=== PATIENT | male | born 1940 | race Caucasian/White ===

== ENCOUNTER 2017-03-29 10:04 | Day surgery (SDC) | payer MEDICARE, BC ==
[~2017-03-29] VITALS: Ht 177.8 cm; Wt 110.5 kg
[~2017-03-29 10:04] MED LIST: ASPIRIN 81M81 MG/TA2 PO; BYETTA; CALAN SR240 MG PO; CARDIZEM CD360 MG PO; CELEXA 20MG20 MG/TAB PO; CLOPIDOGREL; COREG12.5 MG PO; COZAAR100 MG PO; FLEXERIL10 MG PO; LASIX 20MG TABL20 MG PO; LIPITOR 80MG80 MG PO; LORTAB 5/500 501 TAB PO; LOTENSIN10 MG PO; NIZATIDINE150 MG PO; NOVOLIN 70/30 IN3 ML SC; PLAVIX 75MG TAB75 MG PO; VYTORIN
[2017-03-29] MEDS ORDERED: HYGROTON 2525 MG/TAB (10:53)
[2017-03-29] MEDS ORDERED: PROBIOTIC-MAJOR PO (10:54)
[2017-03-29] MEDS ORDERED: ALLEGRA ALLERGY60 MG PO (10:54)
[2017-03-29 11:37] VITALS: BP 94/41; PULSE 46; TEMP 97.9
[2017-03-29 13:30] VITALS: BP 149/56; PULSE 56; TEMP 97.4
[2017-03-29 13:45] VITALS: BP 146/51; PULSE 59
== END 2017-03-29 14:09 | disposition home or self-care (01) ==
LOC: SDCO 10:04
DX: E11.621 Type 2 diabetes mellitus with foot ulcer (principal); L97.524 Non-pressure chronic ulcer of other part of left foot with necrosis of bone; F17.210 Nicotine dependence, cigarettes, uncomplicated; E78.5 Hyperlipidemia, unspecified; E11.40 Type 2 diabetes mellitus with diabetic neuropathy, unspecified; I25.10 Atherosclerotic heart disease of native coronary artery without angina pectoris; K21.9 Gastro-esophageal reflux disease without esophagitis; F32.9 Major depressive disorder, single episode, unspecified; I11.0 Hypertensive heart disease with heart failure; J44.9 Chronic obstructive pulmonary disease, unspecified; G47.33 Obstructive sleep apnea (adult) (pediatric); Z79.84 Long term (current) use of oral hypoglycemic drugs; Z79.01 Long term (current) use of anticoagulants; Z89.421 Acquired absence of other right toe(s); Z95.5 Presence of coronary angioplasty implant and graft; Z89.422 Acquired absence of other left toe(s)
CPT/HCPCS: J2704; J3010; J3370; J7030; J7050

== ENCOUNTER → 2017-11-13 | Outpatient (CLI) | payer MEDICARE, BC ==
[~2017-11-13] MED LIST changes: +ALLEGRA ALLERGY60 MG PO; +HYGROTON 2525 MG/TAB; +NORCO 325 MG-51 TAB PO; +PROBIOTIC-MAJOR PO
== END ==
LOC: COL.RAD 16:19
DX: G31.89 Other specified degenerative diseases of nervous system (principal)

== ENCOUNTER → 2018-02-22 | Emergency (ER) | payer MEDICARE, BC ==
[~2018-02-22] MED LIST changes: +COREG 3.123.125 MG/T PO; +HUMALOG 75/2100 U/ML SQ; +MULTI-VITAMIN W1 TA1 PO; -NOVOLIN 70/30 IN3 ML SC; +NS INT FLUSH 1010 ML IV; +ROCEPHIN 2GM VIAL21 IV; +VANCOCIN HCL1 GM IV
== END ==
LOC: COL.ER 18:53
DX: Z72.89 Other problems related to lifestyle (principal); Z79.82 Long term (current) use of aspirin; Z79.02 Long term (current) use of antithrombotics/antiplatelets; Z79.4 Long term (current) use of insulin

== ENCOUNTER 2018-02-23 09:36 | Emergency (ER) | payer MEDICARE, BC ==
[~2018-02-23] VITALS: Ht 177.8 cm; Wt 107.7 kg
[2018-02-23 09:41] VITALS: BP 146/65; PULSE 62; TEMP 98.1
== END 2018-02-23 10:28 | disposition home or self-care (01) ==
LOC: COL.ER 09:36
DX: M86.9 Osteomyelitis, unspecified (principal); S91.302A Unspecified open wound, left foot, initial encounter; Z79.02 Long term (current) use of antithrombotics/antiplatelets; Z79.82 Long term (current) use of aspirin

== ENCOUNTER 2018-03-02 07:09 | Outpatient (RCR) | payer MEDICARE, BC ==
[2018-02-22 08:00] VITALS: BP 140/64; PULSE 70; TEMP 97.3
[2018-02-23 07:27] VITALS: BP 136/54; PULSE 63; TEMP 98.4
[2018-02-24 07:21] LABS: MEAN CELL VOLUME 86 fl (80.0-100.0); MEAN CORPUSCULAR HEMOGLOBIN 28 pg (27.0-31.0); MEAN CORPUSCULAR HGB CONC 33 g/dl (33.0-37.0); MEAN PLATELET VOLUME 10.5 fl (7.4-10.4); PLATELET COUNT 245 K/mm3 (130-400); RED BLOOD COUNT 3.92 M/mm3 (4.20-5.60); REDCELL DISTRIBUTION WIDTH-CV 15.1 % (11.5-14.5)
[2018-02-24 07:24] LABS: HEMATOCRIT 33.8 % (42.0-52.0)
[2018-02-24 07:37] LABS: ALBUMIN 2.9 gm/dL (3.5-5.0); BILIRUBIN,TOTAL 0.5 mg/dL (0.0-1.0); CALCIUM 8.4 mg/dL (8.4-10.2); CREATININE, serum 0.79 mg/dL (0.66-1.25); POTASSIUM 3.3 mmol/L (3.4-5.0); TOTAL PROTEIN 6.4 gm/dL (6.4-8.2)
[2018-02-24 07:42] LABS: VANCOMYCIN TROUGH 17.58 ug/mL (7.00-20.00)
[2018-02-24 07:44] LABS: ERYTHROCYTE SEDIMENTATION RATE 118 mm/hr (0-30)
[2018-02-24 09:41] VITALS: BP 140/109; PULSE 71; TEMP 98.6
[2018-02-24 18:03] VITALS: BP 148/63; PULSE 74; TEMP 98.4
[2018-02-25 06:51] VITALS: BP 160/73; PULSE 76; TEMP 97.8
[2018-02-25 18:31] VITALS: BP 168/73; PULSE 82; TEMP 98
[2018-02-26 06:52] VITALS: BP 172/69; PULSE 69; TEMP 98.1
[2018-02-26 17:36] VITALS: BP 189/71; PULSE 79; TEMP 98.8
[2018-02-27 07:11] VITALS: BP 177/79; PULSE 70; TEMP 98.6
[2018-02-27 17:51] VITALS: BP 151/56; PULSE 61; TEMP 99.8
[2018-02-28 06:32] VITALS: BP 125/53; PULSE 52; TEMP 98.1
[2018-03-01 08:28] VITALS: BP 166/66; PULSE 76; TEMP 98.6
[~2018-03-02] VITALS: Ht 182.9 cm; Wt 111.0 kg
[2018-03-03 06:34] VITALS: BP 165/59; PULSE 76; TEMP 97.6
[2018-03-03 07:17] LABS: BILIRUBIN,TOTAL 0.4 mg/dL (0.0-1.0); CALCIUM 8.5 mg/dL (8.4-10.2); CREATININE, serum 0.93 mg/dL (0.66-1.25); TOTAL PROTEIN 7.1 gm/dL (6.4-8.2)
[2018-03-03 07:30] LABS: HEMOGLOBIN 11.3 g/dl (13.5-18.0); MEAN CELL VOLUME 86 fl (80.0-100.0); MEAN CORPUSCULAR HEMOGLOBIN 28 pg (27.0-31.0); MEAN CORPUSCULAR HGB CONC 32 g/dl (33.0-37.0); MEAN PLATELET VOLUME 9.2 fl (7.4-10.4); PLATELET COUNT 349 K/mm3 (130-400); REDCELL DISTRIBUTION WIDTH-CV 15.6 % (11.5-14.5)
[2018-03-03 07:31] LABS: HEMATOCRIT 35.4 % (42.0-52.0)
[2018-03-03 07:39] LABS: C-REACTIVE PROTEIN 6.8 mg/dL (0.0-0.9)
[2018-03-03 07:53] LABS: ERYTHROCYTE SEDIMENTATION RATE > 140 mm/hr (0-30)
[2018-03-04 07:17] VITALS: BP 169/64; PULSE 66; TEMP 98.2
[2018-03-06 07:06] VITALS: BP 164/62; PULSE 72; TEMP 98.7
[2018-03-07 08:05] VITALS: BP 171/75; PULSE 75; TEMP 98.7
[2018-03-08 07:07] VITALS: BP 180/54; PULSE 74; TEMP 98.1
[2018-03-09 07:07] VITALS: BP 185/71; PULSE 73; TEMP 97.6
[2018-03-10 06:55] VITALS: BP 198/76; PULSE 70; TEMP 98.3
[2018-03-10 07:09] LABS: HEMOGLOBIN 11.1 g/dl (13.5-18.0); MEAN CELL VOLUME 86 fl (80.0-100.0); MEAN CORPUSCULAR HEMOGLOBIN 28 pg (27.0-31.0); MEAN CORPUSCULAR HGB CONC 32 g/dl (33.0-37.0); PLATELET COUNT 317 K/mm3 (130-400); RED BLOOD COUNT 4.01 M/mm3 (4.20-5.60); REDCELL DISTRIBUTION WIDTH-CV 15.9 % (11.5-14.5)
[2018-03-10 07:10] LABS: HEMATOCRIT 34.4 % (42.0-52.0)
[2018-03-10 07:22] LABS: ALBUMIN 3.1 gm/dL (3.5-5.0); BILIRUBIN,TOTAL 0.4 mg/dL (0.0-1.0); C-REACTIVE PROTEIN 2.9 mg/dL (0.0-0.9); CALCIUM 8.7 mg/dL (8.4-10.2); CREATININE, serum 0.92 mg/dL (0.66-1.25); TOTAL PROTEIN 7.4 gm/dL (6.4-8.2)
[2018-03-10 07:33] LABS: ERYTHROCYTE SEDIMENTATION RATE 88 mm/hr (0-30)
[2018-03-11 07:29] VITALS: BP 144/65; PULSE 67; TEMP 98.2
[2018-03-12 07:21] VITALS: BP 133/58; BP 99/54; PULSE 102; PULSE 47; TEMP 98.2; TEMP 98.7
[2018-03-13 06:46] VITALS: BP 164/62; PULSE 69; TEMP 98.1
[2018-03-14 07:00] VITALS: BP 170/75; PULSE 71; TEMP 98.2
[2018-03-15 07:27] VITALS: BP 168/71; PULSE 70; TEMP 98.7
[2018-03-16 07:23] VITALS: BP 193/74; PULSE 70; TEMP 98.3
[2018-03-17 07:07] LABS: HEMOGLOBIN 11.4 g/dl (13.5-18.0); MEAN CELL VOLUME 85 fl (80.0-100.0); MEAN CORPUSCULAR HEMOGLOBIN 27 pg (27.0-31.0); MEAN CORPUSCULAR HGB CONC 32 g/dl (33.0-37.0); MEAN PLATELET VOLUME 9.2 fl (7.4-10.4); PLATELET COUNT 246 K/mm3 (130-400); RED BLOOD COUNT 4.18 M/mm3 (4.20-5.60); REDCELL DISTRIBUTION WIDTH-CV 16.6 % (11.5-14.5)
[2018-03-17 07:12] VITALS: BP 145/82; PULSE 69; TEMP 98.2
[2018-03-17 07:27] LABS: ALBUMIN 3.2 gm/dL (3.5-5.0); BILIRUBIN,TOTAL 0.3 mg/dL (0.0-1.0); CALCIUM 8.6 mg/dL (8.4-10.2); CREATININE, serum 0.89 mg/dL (0.66-1.25); POTASSIUM 4.2 mmol/L (3.4-5.0); TOTAL PROTEIN 7.4 gm/dL (6.4-8.2)
[2018-03-17 07:29] LABS: HEMATOCRIT 35.6 % (42.0-52.0)
[2018-03-17 08:00] LABS: ERYTHROCYTE SEDIMENTATION RATE 71 mm/hr (0-30)
[2018-03-18 07:27] VITALS: BP 205/76; PULSE 69; TEMP 98.4
[2018-03-19 06:50] VITALS: BP 161/67; PULSE 63; TEMP 97.9
[2018-03-20] MEDS ORDERED: HUMALOG MIX 75/10 ML SQ ×2 (10:14)
[2018-03-21] MEDS ORDERED: NORCO 325 MG-7.1 TAB PO (06:21)
[2018-04-01] MEDS ORDERED: COREG 25MG25 MG/TAB PO (07:32)
[2018-04-01] MEDS ORDERED: NORCO 325 MG-51 TAB PO (07:33)
== END 2018-03-20 06:14 | disposition home or self-care (01) ==
LOC: EUO 03-03 06:30
PROVIDERS: Family Medicine; Internal Medicine; Internal Medicine Infectious Disease; Orthopaedic Surgery
DX: E11.628 Type 2 diabetes mellitus with other skin complications (principal); L08.9 Local infection of the skin and subcutaneous tissue, unspecified
CPT/HCPCS: J0696; J1644; J3370; J7040

== ENCOUNTER → 2018-03-17 | Outpatient (CLI) | payer MEDICARE, BC | LOC: ZCOL.LAB 15:45 | DX: Z01.812 Encounter for preprocedural laboratory examination (principal); Z86.14 Personal history of Methicillin resistant Staphylococcus aureus infection ==

== ENCOUNTER 2018-03-23 01:33 | Emergency (ER) | payer MEDICARE, BC ==
[~2018-03-23] VITALS: Ht 180.3 cm; Wt 109.1 kg
[~2018-03-23 01:33] MED LIST changes: +HUMALOG MIX 75/10 ML SQ; +NORCO 325 MG-7.1 TAB PO
[2018-03-23 01:35] VITALS: TEMP 96.7
[2018-03-23 02:08] LABS: BASO % 0.3 % (0.0-2.0); EOS % 0.2 % (0-4.0); GRAN # 13.6 (1.4-6.5); GRAN % 86.3 % (42.2-75.2); HEMOGLOBIN 10.5 g/dl (13.5-18.0); LYMPH # 1.5 (1.2-3.4); LYMPH % 9.7 % (20.0-51.0); MEAN CELL VOLUME 86 fl (80.0-100.0); MEAN CORPUSCULAR HEMOGLOBIN 28 pg (27.0-31.0); MEAN CORPUSCULAR HGB CONC 32 g/dl (33.0-37.0); MONO # 0.5 (0.1-0.6); PLATELET COUNT 186 K/mm3 (130-400); RED BLOOD COUNT 3.79 M/mm3 (4.20-5.60); REDCELL DISTRIBUTION WIDTH-CV 17.4 % (11.5-14.5)
[2018-03-23 02:10] LABS: HEMATOCRIT 32.4 % (42.0-52.0)
[2018-03-23 02:19] LABS: ALBUMIN 3.2 gm/dL (3.5-5.0); BILIRUBIN,TOTAL 0.5 mg/dL (0.0-1.0); C-REACTIVE PROTEIN 7.3 mg/dL (0.0-0.9); CALCIUM 8.2 mg/dL (8.4-10.2); CREATININE, serum 0.79 mg/dL (0.66-1.25); TOTAL PROTEIN 7.1 gm/dL (6.4-8.2)
[2018-03-23 02:37] LABS: COLLECTION METHOD CLEAN CATCH
[2018-03-23 02:38] LABS: TROPONIN-I 0.197 ng/mL (0.000-0.034)
[2018-03-23 02:43] LABS: PH 6 (5-8); SQUAMOUS EPITHELIAL None Seen /hpf; URINE APPEARANCE Clear; URINE BACTERIA None Seen /hpf; URINE BILIRUBIN Negative (NEGATIVE); URINE BLOOD Negative (NEGATIVE); URINE COLOR Yellow; URINE GLUCOSE Negative (NEGATIVE); URINE KETONE Negative (NEGATIVE); URINE LEUKOCYTE ESTERASE Negative (NEGATIVE); URINE NITRATE Negative (NEGATIVE); URINE PROTEIN(semi-quant) 2+ (NEGATIVE); URINE UROBILINOGEN Negative (NEGATIVE)
[2018-03-23 06:14] VITALS: BP 164/82; PULSE 75
== END 2018-03-23 05:30 | disposition short-term general hospital (02) ==
LOC: COL.ER 01:33
PROVIDERS: Emergency Medicine
DX: E16.2 Hypoglycemia, unspecified (principal); I11.0 Hypertensive heart disease with heart failure; I50.9 Heart failure, unspecified; R09.02 Hypoxemia; I25.10 Atherosclerotic heart disease of native coronary artery without angina pectoris; E11.9 Type 2 diabetes mellitus without complications; E78.5 Hyperlipidemia, unspecified; F17.210 Nicotine dependence, cigarettes, uncomplicated; Z95.5 Presence of coronary angioplasty implant and graft; Z89.432 Acquired absence of left foot; Z79.82 Long term (current) use of aspirin; Z79.4 Long term (current) use of insulin
CPT/HCPCS: J1940; Q9967

== ENCOUNTER 2018-03-23 07:00 | Outpatient (RCR) | payer MEDICARE, BC ==
[2018-03-22 07:31] VITALS: BP 138/77; PULSE 74; TEMP 98.1
== END 2018-03-24 07:41 | disposition home or self-care (01) ==
LOC: EUO 07:00
DX: M86.9 Osteomyelitis, unspecified (principal); B99.9 Unspecified infectious disease; Z45.2 Encounter for adjustment and management of vascular access device; Z95.9 Presence of cardiac and vascular implant and graft, unspecified
CPT/HCPCS: J0696

== ENCOUNTER → 2018-09-05 | Outpatient (CLI) | payer MEDICARE, BC ==
[~2018-09-05] MED LIST changes: +COREG 25MG25 MG/TAB PO
== END ==
LOC: COL.VAS 08:42
DX: I65.23 Occlusion and stenosis of bilateral carotid arteries (principal); R09.89 Other specified symptoms and signs involving the circulatory and respiratory systems

== ENCOUNTER 2019-11-19 13:58 | Observation (INO) | payer MEDICARE, BC ==
[2019-11-19] VITALS (7 sets, daily range): BP systolic 180–212; BP diastolic 54–103; PULSE 65–70; TEMP 97.5–98.2
[~2019-11-19] VITALS: Ht 177.8 cm; Wt 100.4 kg
[~2019-11-19 13:58] MED LIST changes: +CARTIA XT180 MG PO; +COZAAR 50MG50 MG/TAB PO; +GLUCOPHAGE500 MG/TAB PO; +LASIX 40MG TABL40 MG PO; +NORVASC 10MG10 MG PO
[2019-11-19] MEDS ORDERED: COREG 6.256.25 MG/TA PO ×2 (14:26)
[2019-11-19] MEDS ORDERED: COREG 25MG25 MG/TAB PO (14:27)
[2019-11-19] MEDS ORDERED: COZAAR 25MG25 MG/TAB PO (14:30)
[2019-11-19] MEDS ORDERED: GLUCOPHAGE1000 MG PO (14:31)
[2019-11-19] MEDS ORDERED: KLOR-CON20 MEQ PO (14:33)
[2019-11-19] MEDS ORDERED: MAG-OX 400400 MG/TAB PO (14:34)
[2019-11-19 14:35] LABS: BASO % 0.4 % (0.0-2.0); EOS # 0.1 (0.0-0.7); EOS % 1.1 % (0-4.0); GRAN # 7.3 (1.4-6.5); GRAN % 69.2 % (42.2-75.2); HEMATOCRIT 41.1 % (42.0-52.0); HEMOGLOBIN 13.2 g/dl (13.5-18.0); LYMPH # 2.4 (1.2-3.4); LYMPH % 23.2 % (20.0-51.0); MEAN CELL VOLUME 89 fl (80.0-100.0); MEAN CORPUSCULAR HEMOGLOBIN 29 pg (27.0-31.0); MEAN CORPUSCULAR HGB CONC 32 g/dl (33.0-37.0); MEAN PLATELET VOLUME 10.4 fl (7.4-10.4); MONO # 0.6 (0.1-0.6); MONO % 5.8 % (1.7-9.3); PLATELET COUNT 243 K/mm3 (130-400); RED BLOOD COUNT 4.63 M/mm3 (4.20-5.60); REDCELL DISTRIBUTION WIDTH-CV 15.8 % (11.5-14.5)
[2019-11-19 14:43] LABS: ALANINE AMINOTRANSFERASE 15 U/L (21-72); ALKALINE PHOSPHATASE 115 U/L (50-136); ANION GAP 12 mmol/L (7-16); AST,SGOT 22 U/L (15-37); BILIRUBIN,TOTAL 0.5 mg/dL (0.0-1.0); BLOOD UREA NITROGEN 26 mg/dL (9-20); CALCIUM 9.2 mg/dL (8.4-10.2); CARBON DIOXIDE 24 mmol/L (22-30); CHLORIDE 101 mmol/L (98-107); CREATININE, serum 0.85 (0.66-1.25); GLUCOSE 271 mg/dL (74-106); POTASSIUM 4.8 mmol/L (3.4-5.0); SODIUM 137 mmol/L (137-145); TOTAL PROTEIN 7.1 gm/dL (6.4-8.2)
[2019-11-19 14:54] LABS: TROPONIN-I < 0.012 ng/mL (0.000-0.035)
[2019-11-19 16:43] LABS: COLLECTION METHOD CLEAN CATCH
[2019-11-19 17:49] LABS: MUCOUS Present /lpf; PH 6 (5-8); SQUAMOUS EPITHELIAL None Seen /hpf; URINE APPEARANCE Clear; URINE BACTERIA None Seen /hpf; URINE BILIRUBIN Negative (NEGATIVE); URINE BLOOD Negative (NEGATIVE); URINE COLOR Yellow; URINE GLUCOSE 3+ (NEGATIVE); URINE KETONE Negative (NEGATIVE); URINE LEUKOCYTE ESTERASE Negative (NEGATIVE); URINE NITRATE Negative (NEGATIVE); URINE PROTEIN(semi-quant) Negative (NEGATIVE); URINE RBC 0-2 /hpf; URINE UROBILINOGEN Negative (NEGATIVE); URINE WBC 0-2 /hpf
--- NOTE | 2019-11-19 19:20 | NUR ---
Patient was transferred from ER. ER Nurse Christophe gave me report. Report was giving to night nurse Hayley. No assessment or admission done on the patient at this time.
--- NOTE | 2019-11-19 19:33 | NUR ---
PT IN BED WITH BED RAILS UP AND TABLE AT BEDSIDE. DAUGHTERS ALSO AT BEDSIDE. PT HAS ALREADY TRIED TO GET UP BY HIMSELF, URINAL AT BEDSIDE. PT PLEASANT AND ALERT AND ORIENTED. JOKING WITH FAMILY, GOOD ATTITUDE. COMPLIANT WITH QUESTIONS AND DENIES PAIN OR DISCOMFORT. BED ALARM PLACED AND SIGN FOR FALL RISK ON OUTSIDE OF DOOR. EDUCATION PROVIDED ON WHY HE CANNOT GET UP BY HIMSELF, BED IN LOWEST POSITION. NOTHING OUT OF ORDINARY ON ASSESSMENT. DENIES ANY OTHER NEEDS AT THIS TIME.
--- NOTE | 2019-11-19 22:15 | NUR ---
pt blood pressure systolic 193, upon rechecking it was 205/72. BR[employer]GE [employer]DER notified and hydralazine 10mg IV was ordered and given. upon rechecking pt systolic 164, no further action needed.
--- NOTE | 2019-11-20 00:04 | NUR ---
PT BP 180/54. WILL REASSESS CLOSER TO NEXT AVAILABLE DOSE OF HYDRALAZINE. DENIES ANY OTHER NEEDS AT THIS TIME.
--- NOTE | 2019-11-20 01:51 | NUR ---
UPON RECHECKING BP SYSTOLIC WAS 183, HYDRALAZINE 10MG IV ADMINISTERED. BROUGHT IN BLANKETS PER PT'S WIFES' REQUEST. BP RECHECKED AND IT WAS 130/45.
[2019-11-20 02:14] VITALS: BP 130/43
[2019-11-20 04:06] VITALS: BP 152/101; PULSE 76; TEMP 97.6
--- NOTE | 2019-11-20 04:59 | NUR ---
pt has been having hypertension requiring hydralazine. pt pleasant and humorous. sleeping at bedside. not much sleep aquired due to frequent bp checks and medication administration. table at bedside along with call light. pt denies any other needs at this time.
[2019-11-20 05:46] VITALS: BP 140/75
[2019-11-20 05:53] LABS: BASO % 0.3 % (0.0-2.0); EOS # 0.2 (0.0-0.7); EOS % 1.8 % (0-4.0); GRAN # 7.1 (1.4-6.5); GRAN % 69.2 % (42.2-75.2); HEMATOCRIT 40.7 % (42.0-52.0); LYMPH # 2.3 (1.2-3.4); LYMPH % 22.1 % (20.0-51.0); MEAN CELL VOLUME 88 fl (80.0-100.0); MEAN CORPUSCULAR HEMOGLOBIN 28 pg (27.0-31.0); MEAN CORPUSCULAR HGB CONC 32 g/dl (33.0-37.0); MEAN PLATELET VOLUME 10.1 fl (7.4-10.4); MONO # 0.7 (0.1-0.6); MONO % 6.3 % (1.7-9.3); PLATELET COUNT 253 K/mm3 (130-400); RED BLOOD COUNT 4.65 M/mm3 (4.20-5.60); REDCELL DISTRIBUTION WIDTH-CV 15.7 % (11.5-14.5)
[2019-11-20 06:06] LABS: CALCIUM 8.9 mg/dL (8.4-10.2); CREATININE, serum 0.67 (0.66-1.25); POTASSIUM 3.9 mmol/L (3.4-5.0)
--- NOTE | 2019-11-20 07:00 | NUR ---
Bedside shift report received from Manjula Trevizo. Pt in bed resting with eyes closed, at bedside, will continue to monitor.
[2019-11-20 07:21] VITALS: BP 135/71; PULSE 85; TEMP 97.8
--- NOTE | 2019-11-20 09:30 | NUR ---
Assessment charted. Pt not oriented to date or place. at bedside. Pt agreeable to NPO until tests can be completed. Pt nauseated down in MRI, nausea meds given and notified hospitalist. Pt back in bed rsting, will let rest. denies pain. Will ocntinue to monitor.
--- NOTE | 2019-11-20 10:47 | NUR ---
GLADIS met with the patient and his , Isa ([id number]#[phone]), to discuss discharge plan. The patient was sleeping. The patient lives in [place] with his . Laury reports that the patient needs some assistanc with ADLs and that he has a cane and motorized scooter. She states that he primarily uses the scooter and that she helps him with his ADLs. He also receives home health services from [facility]. GLADIS contacted Sulma at [facility] and confirmed that the patient receives assisted/PT from them. GLADIS faxed updates to [facility]. The patient's PCP is Dr. Ang Huston and he receives his medications at [facility]. Isa reports no difficulties obtaining her meds. The patient's advanced directives are in EMR. His is his DPOA-HC. Isa reports that the plan is for the patient to return back home with her and resume home health services from [facility]. Isa was interested on receiving information for private duty caregivers to stay with the patient, when she needs to run errands. GLADIS provided the patient's with a list of the different private duty agencies in [place]. GLADIS to continue to follow.
[2019-11-20 11:46] VITALS: BP 179/94; PULSE 90; TEMP 98
[2019-11-20 12:56] VITALS: BP 126/67
--- NOTE | 2019-11-20 13:22 | NUR ---
The patient is to discharge back home with his today, 11/20, with home health services for shelter/PT/OT through [facility]. GLADIS notified and faxed the patient's discharge orders to Sulma at [facility]. No additional needs at this time.
--- NOTE | 2019-11-20 13:50 | NUR ---
Discharge completed at this time. INTx2 dc'd, tips intact. PT received discharge packet, reviewed medications, follow ups, answered all questions. at bedside. Pt leaving with all bleongings, escorted out via w/c with medical staff, to drive home, criteria met.
== END 2019-11-20 13:15 | disposition home health service (06) ==
LOC: COL.ER 13:58 → MEDICAL 16:42
PROVIDERS: Emergency Medicine; ADMIT Student in an Organized Health Care Education/Training Program
DX: I95.1 Orthostatic hypotension (principal); R29.6 Repeated falls; I65.01 Occlusion and stenosis of right vertebral artery; I10 Essential (primary) hypertension; I25.10 Atherosclerotic heart disease of native coronary artery without angina pectoris; E11.9 Type 2 diabetes mellitus without complications; E78.5 Hyperlipidemia, unspecified; Z86.14 Personal history of Methicillin resistant Staphylococcus aureus infection; G89.29 Other chronic pain; M54.9 Dorsalgia, unspecified; Z88.0 Allergy status to penicillin; Z79.82 Long term (current) use of aspirin; Z79.4 Long term (current) use of insulin; Z79.02 Long term (current) use of antithrombotics/antiplatelets; F17.210 Nicotine dependence, cigarettes, uncomplicated
CPT/HCPCS: G0378; J0360; J1815; J2405; J7030; Q9967